=== PATIENT | female | born 1985 | race Caucasian/White ===

== ENCOUNTER 2020-02-26 06:53 | Outpatient (NON) | payer OTHER, SELFPAY ==
[2020-02-26 17:45] LABS: SARS-CoV-2 RNA PCR Negative
== END 2020-02-26 06:54 ==
PROVIDERS: PCP Physician Assistant; Visit Provider Physician Assistant
DX: Z20.828 Contact with and (suspected) exposure to other viral communicable diseases (principal)
CPT/HCPCS: 87635; C9803; U0003